=== PATIENT | male | born 1965 | race Hispanic/Latino ===

== ENCOUNTER 2021-10-20 09:22 | Emergency (ER) | payer SELFPAY ==
[~2021-10-20] VITALS: Ht 172.7 cm; Wt 114.3 kg
[2021-10-20] MEDS ORDERED: ULORIC40 MG PO (09:58)
[2021-10-20] MEDS ORDERED: ATENOLOL50 MG PO (09:58)
[2021-10-20] MEDS ORDERED: ALLEGRA ALLERGY60 MG PO (09:58)
[2021-10-20] MEDS ORDERED: ALBUTEROL/IPRATROPIUM 3 ML NEB NEB ONE (10:15)
[2021-10-20] MEDS ORDERED: ALBUTEROL/IPRATROPIUM 3 ML NEB ONE (10:23)
[2021-10-20] MEDS ORDERED: PROVENTIL HFA6.7 GM INH (11:32)
[2021-10-20] MEDS ORDERED: MEDROL4 MG PO (11:33)
[2021-10-20] MEDS ORDERED: AMOX TR-K CLV1 EAC2 PO (11:34)
== END 2021-10-20 11:55 | disposition home or self-care (01) ==
LOC: FSED 09:47
DX: R05.9 Cough, unspecified (principal); J20.9 Acute bronchitis, unspecified; R07.89 Other chest pain; I10 Essential (primary) hypertension; E78.5 Hyperlipidemia, unspecified; Z20.822 Contact with and (suspected) exposure to COVID-19
CPT/HCPCS: 71046; 93005; 99283; U0002